=== PATIENT | female | born 1960 | race Caucasian/White ===

== ENCOUNTER 2016-06-14 16:41 | Observation (INO) | payer OTHER ==
[~2016-06-14] VITALS: Ht 157.5 cm; Wt 77.6 kg
--- NOTE | 2016-06-14 19:10 | NUR ---
1845 PT ARRIVED TO FLOOR FROM ER. PT TO ROOM 301 AND IS RESTING IN BED AT THIS TIME.
[2016-06-18] MEDS ORDERED: DAILY VITE1 EACH PO (08:22)
[2016-06-18] MEDS ORDERED: MAGNESIUM250 M1 PO (08:22)
[2016-06-18] MEDS ORDERED: CALCIUM600 MG PO (08:22)
[2016-06-18] MEDS ORDERED: ZOFRAN4 MG PO (08:23)
[2016-06-18] MEDS ORDERED: COUMADIN5 MG PO (08:24)
[2016-06-18] MEDS ORDERED: COUMADIN7.5 MG PO (08:24)
== END 2016-06-16 18:02 | disposition home or self-care (01) ==
LOC: ER 16:41 → MED 18:25
PROVIDERS: ADMIT Internal Medicine
DX: D50.9 Iron deficiency anemia, unspecified (principal); Z85.43 Personal history of malignant neoplasm of ovary; Z86.711 Personal history of pulmonary embolism; Z79.01 Long term (current) use of anticoagulants; Z79.899 Other long term (current) drug therapy; Z88.8 Allergy status to other drugs, medicaments and biological substances; Z90.710 Acquired absence of both cervix and uterus
CPT/HCPCS: 36415; 96374; 96375; G0378; P9021; Q9963; Q9967